=== PATIENT | female | born 1950 | race Hispanic/Latino ===

== ENCOUNTER → 2018-03-08 | Outpatient (CLI) | payer BC, OTHER | END | disposition home or self-care (01) | LOC: RAH 15:04 | PROVIDERS: ATTEND Internal Medicine | DX: J20.9 Acute bronchitis, unspecified (principal); R06.2 Wheezing | CPT/HCPCS: 71046 ==

== ENCOUNTER → 2019-01-02 | Outpatient (CLI) | payer OTHER | END | disposition home or self-care (01) | LOC: RAH 10:52 | PROVIDERS: ATTEND Internal Medicine | DX: R22.32 Localized swelling, mass and lump, left upper limb (principal) | CPT/HCPCS: 73120 ==